=== PATIENT | male | born 1945 | race Caucasian/White ===

== ENCOUNTER 2017-02-19 08:48 | Emergency (ER) | payer MEDICARE, BC ==
--- NOTE | 2017-02-19 09:18 | EDM.PDOC ---
ED HPI GENERAL MEDICAL PROBLEM - General Chief Complaint: Back Pain or Injury Stated Complaint: BACK PAIN Time Seen by Provider: 02/19/17 09:15 Source of Information: Reports: Patient - History of Present Illness INITIAL COMMENTS - FREE TEXT/NARRATIVE: he fell trying to sit in hammock last night; has pain in his right mid back, no spinal tenderness Onset: Other (yesterday) Onset Date: 02/18/17 Location: Reports: Back (mid, right side) Quality: Reports: Ache, Sharp, Stabbing Severity: Moderate Improves with: Reports: None Worsens with: Reports: Movement Associated Symptoms: Reports: No Other Symptoms ED ROS GENERAL - Review of Systems Review Of Systems: See Below Constitutional: Reports: No Symptoms HEENT: Reports: No Symptoms Respiratory: Reports: No Symptoms Cardiovascular: Reports: No Symptoms GI/Abdominal: Reports: No Symptoms Musculoskeletal: Reports: Back Pain Skin: Reports: No Symptoms Neurological: Reports: No Symptoms Psychiatric: Reports: No Symptoms ED EXAM, GENERAL - Physical Exam Exam: See Below Exam Limited By: No Limitations General Appearance: Alert, WD/WN, No Apparent Distress Throat/Mouth: Normal Inspection Head: Atraumatic, Normocephalic Neck: Normal Inspection, Supple, Non-Tender, Full Range of Motion Respiratory/Chest: No Respiratory Distress, Lungs Clear, Normal Breath Sounds Cardiovascular: Regular Rate, Rhythm GI/Abdominal: Normal Bowel Sounds, Soft, Non-Tender Back Exam: Other (mild pain with palpation to the mid right thoracic area, no bruising. ) Extremities: Normal Range of Motion Neurological: Alert, Oriented, CN II-XII Intact, Normal Cognition, Normal Gait, No Motor/Sensory Deficits. No: Normal Reflexes Course - Vital Signs Last Recorded V/S: Last Vital Signs Temp 96.6 F 02/19/17 09:25 Pulse 73 02/19/17 09:25 Resp 16 02/19/17 09:25 BP 141/81 H 02/19/17 09:25 Pulse Ox 98 02/19/17 09:25 Departure - Departure Time of Disposition: 10:00 Disposition: Home, Self-Care 01 Condition: Good Clinical Impression: Back pain of thoracolumbar region - Discharge Information Instructions: Cyclobenzaprine tablets, Tramadol tablets Referrals: PCP,None [Primary Care Provider] - Forms: ED Department Discharge Care Plan Goals: Take tramadol 1 tab every 4 to 6 hours as needed for pain. Take cyclobenzaprine 1 tab 3 x day. Use cold pack as directed 20 minutes of an hour 3 to 4 x day. - Problem List & Annotations (1) Back pain of thoracolumbar region SNOMED Code(s): 159355666, [id number] Code(s): M54.5 - LOW BACK PAIN Status: Acute Priority: Medium - Problem List Review Problem List Initiated/Reviewed/Updated: Yes - Assessment/Plan Plan: Ice as often as able Tramadol as pain cuff setter overlock; take as directed Ibuprofen every 8 hours as needed for inflammation Flexeril 10 mg for muscle spasms Encourage deep breaths to avoid pneumonia FU if not improving
[2017-02-19] MEDS ORDERED: traMADol 50 MG Tab ONE (09:30)
[2017-02-19] MEDS ORDERED: Cyclobenzaprine 10 MG Tab ONE (09:30)
== END 2017-02-19 09:38 | disposition home or self-care (01) ==
LOC: LB.ED 08:48
DX: M54.5 Low back pain (principal); M54.6 Pain in thoracic spine
CPT/HCPCS: 99283; A9270